=== PATIENT | female | born 1980 | race American Indian/Alaskan Native ===

== ENCOUNTER 2020-05-26 14:59 | Emergency (ER) | payer SELFPAY ==
--- NOTE | 2020-05-26 15:37 | Event Note ---
ED Screening Note Date of service: 05/26/20 Time: 15:35 ED Screening Note: 40-year-old -Filipino female presents to the emergency room for lower abdominal pain x2 weeks. Patient states that the pain is getting worse. Has mild vaginal discharge. Pain is getting worse with walking moving. This initial assessment/diagnostic orders/clinical plan/treatment(s) is/are subject to change based on patients health status, clinical progression and re- assessment by fellow clinical providers in the ED. Further treatment and workup at subsequent clinical providers discretion. Patient/guardian urged not to elope from the ED as their condition may be serious if not clinically assessed and man aged. Initial orders include:
[2020-05-26 16:17] LABS: Alanine Aminotransferase 11 units/L (7-56); Albumin 4.1 g/dL (3.9-5); Blood Urea Nitrogen 8 mg/dL (7-17); Calcium 9.1 mg/dL (8.4-10.2); Hemolysis Index 5
[2020-05-26 16:19] LABS: BUN/Creatinine Ratio 13
[2020-05-26 16:28] LABS: Basophils % (Auto) 0.2 % (0.0-1.8); Eosinophils % (Auto) 0.1 % (0.0-4.3); Hemoglobin 13.2 gm/dl (10.1-14.3); Lymphocytes # (Auto) 1.2 K/mm3 (1.2-5.4); Lymphocytes % (Auto) 10.3 % (13.4-35.0); Mean Corpuscular HGB Conc 35 % (30-34); Mean Corpuscular Volume 92 fl (79-97); Monocytes # (Auto) 0.6 K/mm3 (0.0-0.8); Monocytes % (Auto) 5.4 % (0.0-7.3); Platelet Count 228 K/mm3 (140-440); Red Blood Count 4.13 M/mm3 (3.65-5.03); Red Cell Distribution Width 13.7 % (13.2-15.2)
[2020-05-26] MEDS ORDERED: ONDANSETRON 4 MG/2 ML INJ IV ONE (19:14)
[2020-05-26] MEDS ORDERED: KETOROLAC 30 MG/1 ML INJ IV ONE (19:14)
--- NOTE | 2020-05-26 19:35 | Emergency Department Report ---
ED Female HPI - General Chief complaint: Abdominal Pain Stated complaint: LOWER ABD PAIN Source: patient Mode of arrival: Ambulatory Limitations: No Limitations - History of Present Illness Initial comments: Patient is a A2 40-year-old -[place] female with no past medical history presents to the ED with complaint of acute onset persistent severe pelvic and suprapubic pain that radiates diffusely in the lower abdomen with vaginal discharge, dyspareunia, urinary urgency and frequency for the last 1 week. Patient states that she initially was evaluated for the same at an urgent care clinic and was told that she had bacterial vaginosis but was never given any antibiotic prescription for bacterial vaginosis. Patient states that she was told to go and purchase yogurt in order to help treat the bacterial vaginosis. Patient states that in the last 4 days, the pain has been persistent, severe and that she is unable to sleep because of worsening pain. Patient denies fever, chills, nausea and vomiting, diarrhea, dysuria, low back pain, chest pain or shortness of breath, sore throat, cough or headache and dizziness. MD Complaint: vaginal discharge, pelvic pain -: Sudden, week(s) (1) Location: suprapubic Radiation: LLQ, RLQ Severity: severe Severity scale (0 -10): 8 Quality: sharp, aching Consistency: constant Improves with: none Worsens with: intercourse, movement Are you Now?: No Last Menstrual Period: 05/19/20 EDC: 02/23/21 Associated Symptoms: denies other symptoms, vaginal discharge, abdominal pain (Suprapubic pain), nausea/vomiting, loss of appetite. denies: vaginal bleeding, headaches, dysuria, hematuria, rash, seizure, shortness of breath, syncope, weakness - Related Data Sexually active: Yes : 2 Para: 0 A: 2 Previous Rx's Medication Instructions Recorded Last Taken Type DOXYCYCLINE Hyclate [Vibramycin 100 mg PO Q12HR #20 capsule 05/26/20 Unknown Rx CAP] Fluconazole (Nf) [Diflucan TAB] 150 mg PO ONCE #1 tablet 05/26/20 Unknown Rx Ibuprofen [Motrin] 800 mg PO Q8HR PRN #30 tablet 05/26/20 Unknown Rx Ondansetron [Zofran Odt] 4 mg PO Q6HR PRN #15 tab.rapdis 05/26/20 Unknown Rx metroNIDAZOLE [Flagyl] 500 mg PO Q12HR #14 tab 05/26/20 Unknown Rx traMADoL [Ultram] 50 mg PO Q6HR PRN #10 tablet 05/26/20 Unknown Rx Allergies Allergy/AdvReac Type Severity Reaction Status Date / Time tomato Allergy Rash Verified 05/26/20 15:01 ED Review of Systems ROS: Stated complaint: LOWER ABD PAIN Other details as noted in HPI Constitutional: denies: chills, fever Eyes: denies: eye pain, eye discharge, vision change ENT: denies: ear pain, throat pain Respiratory: denies: cough, shortness of breath, wheezing Cardiovascular: denies: chest pain, palpitations Endocrine: no symptoms reported Gastrointestinal: abdominal pain (Suprapubic pain). denies: nausea, vomiting, diarrhea Genitourinary: urgency, frequency, discharge, dyspareunia, other (Pelvic pain). denies: dysuria Musculoskeletal: denies: back pain, joint swelling, arthralgia Skin: denies: rash, lesions Neurological: denies: headache, weakness, paresthesias Psychiatric: denies: anxiety, depression Hematological/Lymphatic: denies: easy bleeding, easy bruising ED Past Medical Hx - Past Medical History Previous Medical History?: Yes Additional medical history: Bacterial vaginosis - Surgical History Past Surgical History?: No - Social History Smoking Status: Current Every Day Smoker Substance Use Type: Alcohol - Medications Home Medications: Home Medications Medication Instructions Recorded Confirmed Last Taken Type DOXYCYCLINE Hyclate [Vibramycin 100 mg PO Q12HR #20 capsule 05/26/20 Unknown Rx CAP] Fluconazole (Nf) [Diflucan TAB] 150 mg PO ONCE #1 tablet 05/26/20 Unknown Rx Ibuprofen [Motrin] 800 mg PO Q8HR PRN #30 tablet 05/26/20 Unknown Rx Ondansetron [Zofran Odt] 4 mg PO Q6HR PRN #15 tab.rapdis 05/26/20 Unknown Rx metroNIDAZOLE [Flagyl] 500 mg PO Q12HR #14 tab 05/26/20 Unknown Rx traMADoL [Ultram] 50 mg PO Q6HR PRN #10 tablet 05/26/20 Unknown Rx ED Physical Exam - General Limitations: No Limitations General appearance: alert, in no apparent distress - Head Head exam: Present: atraumatic, normocephalic, normal inspection - Eye Eye exam: Present: normal appearance, PERRL, EOMI Pupils: Present: normal accommodation - ENT ENT exam: Present: normal exam, normal orophraynx, mucous membranes moist, TM's normal bilaterally, normal external ear exam - Neck Neck exam: Present: normal inspection, full ROM - Respiratory Respiratory exam: Present: normal lung sounds bilaterally. Absent: respiratory distress, wheezes, rales, rhonchi, stridor, chest wall tenderness, accessory muscle use, decreased breath sounds - Cardiovascular Cardiovascular Exam: Present: normal rhythm, tachycardia, normal heart sounds. Absent: systolic murmur, diastolic murmur, rubs, gallop - GI/Abdominal GI/Abdominal exam: Present: soft, tenderness (Palpable suprapubic and diffuse lower abdominal tenderness), normal bowel sounds. Absent: distended, guarding, rebound, hyperactive bowel sounds, organomegaly - Bi-manual exam: Present: other (Female RN elementary school social worker Ms. Pittman present during the pelvic exam) - Extremities Exam Extremities exam: Present: normal inspection, full ROM, normal capillary refill - Back Exam Back exam: Present: normal inspection, full ROM. Absent: tenderness, CVA tenderness (R), CVA tenderness (L), muscle spasm, paraspinal tenderness, vertebral tenderness - Neurological Exam Neurological exam: Present: alert, oriented X3, CN II-XII intact, normal gait, reflexes normal - Psychiatric Psychiatric exam: Present: normal affect, normal mood - Skin Skin exam: Present: warm, dry, intact, normal color. Absent: rash ED Course Vital Signs 05/26/20 15:03 Temperature 98.9 F Pulse Rate 102 H Respiratory 20 Rate Blood Pressure 118/80 O2 Sat by Pulse 99 Oximetry ED Medical Decision Making - Lab Data Result diagrams: 05/26/20 15:47 05/26/20 15:47 - Radiology Data Radiology results: report reviewed, image reviewed Findings [facility] [address] [place] [address] Ultrasound Report Signed Patient: ADORE SARKAR MR#: [id number] : 1980 Acct:[id number] Age/Sex: 40 / F ADM Date: 05/26/20 Loc: ED Attending Dr: Ordering Physician: DEDRA HAWKINS Date of Service: 05/26/20 Procedure(s): US pelvic complete Accession Number(s): [id number] cc: DEDRA HAWKINS ULTRASOUND PELVIS INDICATION / CLINICAL INFORMATION: Pelvic pain. TECHNIQUE: Transabdominal. Duplex Color Doppler used: Yes. COMPARISON: None available FINDINGS: UTERUS: The uterus measures 5.6 cm in length. The uterus is retroflexed. There are uterine fibroids measuring up to 5 cm. The endometrial stripe measures 8 mm. RIGHT ADNEXA: The right ovary measures 1.6 cm Normal color Doppler blood flow. LEFT ADNEXA: The left ovary is not visualized URINARY BLADDER: No significant abnormality. FREE FLUID: None. ADDITIONAL FINDINGS: None. IMPRESSION: 1. There are uterine fibroids. Signer Name: Christo Rosa MD Signed: 05/26/2020 9:23 PM Workstation Name: [id number] Transcribed By: KELESY Dictated By: Christo Rosa MD Electronically Authenticated By: Christo Rosa MD Signed Date/Time: 05/26/202122 DD/ 20 TD/TT: - Medical Decision Making This is a A2 40-year-old -[place] female with no past medical his tory presents to the ED with complaint of acute onset persistent severe pelvic and suprapubic pain that radiates diffusely in the lower abdomen with vaginal discharge, dyspareunia, urinary urgency and frequency for the last 1 week. Patient states that she initially was evaluated for the same at an urgent care clinic and was told that she had bacterial vaginosis but was never given any antibiotic prescription for bacterial vaginosis. Patient states that she was told to go and purchase yogurt in order to help treat the bacterial vaginosis. Patient states that in the last 4 days, the pain has been persistent, severe and that she is unable to sleep because of worsening pain. In the ED, patient is alert and oriented x3 and is not in any distress. Patient however appears to be in pain and is hemodynamically stable. Patient was treated for pain in the ED and lab test results were reviewed and showed mild leukocytosis of 11,400. The rest of the lab test results are nonactionable except for wet prep which was positive for significant Gardnerella vaginalis consistent with bacterial vagi nosis. Pelvic ultrasound showed significant uterine fibroids some measuring up to 5 cm in size. Pelvic exam was positive for cervical motion tenderness consistent with PID. Patient was treated empirically in the ED for PID with Rocephin and azithromycin. On reevaluation, patient felt better and was discharged home on pain medications and antibiotics and was advised to follow-up with her EXECUTIVE CREATIVE DIRECTOR physician or primary care physician in 7 to 10 days for reevaluation or return to the ED immediately if symptoms get worse. - Differential Diagnosis PID; BV; UTI; Fibroids; Ovarian cyst; STD; Critical care attestation.: If time is entered above; I have spent that time in minutes in the direct care of this critically ill patient, excluding procedure time. ED Disposition Clinical Impression: Acute pelvic inflammatory disease (PID), Bacterial vaginosis Uterine fibroid Qualifiers: Uterine leiomyoma location: unspecified location Qualified Code(s): D25.9 - Leiomyoma of uterus, unspecified Disposition: TO HOME OR SELFCARE Is pt being admited?: No Does the pt Need Aspirin: No Condition: Stable Instructions: Bacterial Vaginosis (ED), Abdominal Pain (ED), Uterine Fibroids, [id number], Bacterial Vaginosis, [id number], Pelvic Inflammatory Disease, [id number] Additional Instructions: Take medications with food, drink plenty of fluids and follow-up with your [facility] care physician or EXECUTIVE CREATIVE DIRECTOR physician in 7 to 10 days for reevaluation. Return to the ED immediately if symptoms get worse. Prescriptions: Fluconazole (Nf) [Diflucan TAB] 150 mg PO ONCE #1 tablet metroNIDAZOLE [Flagyl] 500 mg PO Q12HR #14 tab Ibuprofen [Motrin] 800 mg PO Q8HR PRN #30 tablet PRN Reason: Pain , Severe (7-10) traMADoL [Ultram] 50 mg PO Q6HR PRN #10 tablet PRN Reason: Pain DOXYCYCLINE Hyclate [Vibramycin CAP] 100 mg PO Q12HR #20 capsule Ondansetron [Zofran Odt] 4 mg PO Q6HR PRN #15 tab.rapdis PRN Reason: Nausea Referrals: [facility] [Provider Group] - 7-10 days DANIELA GARSIA MD [Staff Physician] - 7-10 days Forms: STI Treatment and Prevention, Work/School Release Form(ED) Time of Disposition: 23:27 Print Language: IRISH
--- NOTE | 2020-05-26 21:27 | Ultrasound Report ---
ULTRASOUND PELVIS INDICATION / CLINICAL INFORMATION: Pelvic pain. TECHNIQUE: Transabdominal. Duplex Color Doppler used: Yes. COMPARISON: None available FINDINGS: UTERUS: The uterus measures 5.6 cm in length. The uterus is retroflexed. There are uterine fibroids m easuring up to 5 cm. The endometrial stripe measures 8 mm. RIGHT ADNEXA: The right ovary measures 1.6 cm Normal color Doppler blood flow. LEFT ADNEXA: The left ovary is not visualized URINARY BLADDER: No significant abnormality. FREE FLUID: None. ADDITIONAL FINDINGS: None. IMPRESSION: 1. There are uterine fibroids. Signer Name: Christo Rosa MD Signed: 05/26/2020 9:23 PM Workstation Name: [id number]
[2020-05-26] MEDS ORDERED: cefTRIAXone/NS 1 GM/50 ML 1 GM/50 ML BAG IV ONE (21:55)
[2020-05-26] MEDS ORDERED: AZITHROMYCIN 250 MG TAB PO ONE (21:55)
[2020-05-26 22:33] LABS: HCG Qualitative,Urine Negative (Negative)
[2020-05-26 22:38] LABS: Bilirubin,Urine NEG (Negative); Blood,Urine NEG (Negative); Color,Urine Yellow (Yellow); Mucus,Urine 3+ /HPF; Protein,Urine <15 mg/dL mg/dL (Negative); Renal Epithelial Cells,Urine 1 /LPF; Urobilinogen,Urine < 2.0 mg/dL (<2.0)
[2020-05-27 00:50] VITALS: BP 116/73
== END 2020-05-27 00:01 | disposition home or self-care (01) ==
LOC: ED 14:59
DX: D25.9 Leiomyoma of uterus, unspecified (principal); N73.0 Acute parametritis and pelvic cellulitis; N76.0 Acute vaginitis; B96.89 Other specified bacterial agents as the cause of diseases classified elsewhere; F17.200 Nicotine dependence, unspecified, uncomplicated; Z79.899 Other long term (current) drug therapy; Z91.018 Allergy to other foods
CPT/HCPCS: 36415; 76856; 80053; 81001; 81025; 85025; 87210; 87591; 96365; 96375; 99284; J0696; J1885; J2405

== ENCOUNTER 2020-07-09 03:32 | Emergency (ER) | payer SELFPAY ==
[2020-07-09 04:17] LABS: Basophils % (Auto) 0.1 % (0.0-1.8); Eosinophils % (Auto) 0.2 % (0.0-4.3); Hematocrit 35.4 % (30.3-42.9); Hemoglobin 12.3 gm/dl (10.1-14.3); Lymphocytes # (Auto) 0.6 K/mm3 (1.2-5.4); Lymphocytes % (Auto) 6.3 % (13.4-35.0); Mean Corpuscular HGB Conc 35 % (30-34); Mean Corpuscular Volume 91 fl (79-97); Monocytes # (Auto) 0.7 K/mm3 (0.0-0.8); Monocytes % (Auto) 7.5 % (0.0-7.3); Platelet Count 218 K/mm3 (140-440); Red Cell Distribution Width 14.3 % (13.2-15.2)
[2020-07-09 04:17] LABS: Bilirubin,Urine NEG (Negative); Blood,Urine NEG (Negative); Color,Urine Yellow (Yellow); Mucus,Urine FEW /HPF; Protein,Urine <15 mg/dL mg/dL (Negative); RBC,Urine < 1.0 /HPF (0.0-6.0); Urobilinogen,Urine < 2.0 mg/dL (<2.0)
[2020-07-09 04:37] LABS: Alanine Aminotransferase 12 units/L (7-56); Blood Urea Nitrogen 8 mg/dL (7-17); Calcium 9.1 mg/dL (8.4-10.2); Hemolysis Index 4
[2020-07-09 04:43] LABS: BUN/Creatinine Ratio 13
[2020-07-09 10:36] VITALS: BP 119/76
[2020-07-09] MEDS ORDERED: KETOROLAC 30 MG/1 ML INJ IM ONE (11:28)
[2020-07-09] MEDS ORDERED: oxyCODONE /ACETAMINOPHEN 5-325MG TAB PO ONE (11:28)
--- NOTE | 2020-07-09 11:38 | Emergency Department Report ---
ED General Adult HPI - General Chief complaint: Abdominal Pain Stated complaint: SICK Time Seen by Provider: 07/09/20 10:45 Source: patient Mode of arrival: Ambulatory Limitations: No Limitations - History of Present Illness Initial comments: 40-year-old -[place] female patient presents with complaints of right lower pelvic pain x 2 days. Patient reports the pain is similar to the pain she was seen for here in the ED about 3 to 4 weeks ago. At that time, patient was diagnosed with fibroids and PID. She states she did complete her antibiotics that were prescribed at that time and recently had negative STD testing performed. She rates her current pain as a 9/10 in severity and denies any dysuria/hematuria/urinary frequency, dyspareunia, fever/chills/sweats, stool changes, or abnormal vaginal bleeding. Patient states she has a follow-up appointment scheduled with an STEAM PLANT OPERATOR at [place]. - Related Data Previous Rx's Medication Instructions Recorded Last Taken Type DOXYCYCLINE Hyclate [Vibramycin 100 mg PO Q12HR #20 capsule 05/26/20 Unknown Rx CAP] Ondansetron [Zofran Odt] 4 mg PO Q6HR PRN #15 tab.rapdis 05/26/20 Unknown Rx traMADoL [Ultram] 50 mg PO Q6HR PRN #10 tablet 05/26/20 Unknown Rx Fluconazole (Nf) [Diflucan TAB] 150 mg PO ONCE #1 tablet 07/09/20 Unknown Rx Ibuprofen [Motrin 800 MG tab] 800 mg PO Q8HR PRN #21 tablet 07/09/20 Unknown Rx metroNIDAZOLE [Flagyl TAB] 500 mg PO Q12HR #14 tab 07/09/20 Unknown Rx Allergies Allergy/AdvReac Type Severity Reaction Status Date / Time tomato Allergy Rash Verified 05/26/20 15:01 ED Review of Systems ROS: Stated complaint: SICK Other details as noted in HPI Constitutional: denies: chills, fever, malaise Respiratory: denies: shortness of breath Cardiovascular: denies: chest pain Gastrointestinal: abdominal pain. denies: nausea, vomiting, diarrhea, constipation, hematemesis, melena, hematochezia Genitourinary: discharge (States fishy odor). denies: urgency, dysuria, frequency, hematuria, abnormal menses, dyspareunia Musculoskeletal: denies: back pain Skin: denies: rash, lesions, change in color Hematological/Lymphatic: denies: swollen glands ED Past Medical Hx - Past Medical History Previous Medical History?: Yes Additional medical history: Bacterial vaginosis. ovarian cyst - Surgical History Past Surgical History?: No - Social History Smoking Status: Current Some Day Smoker Substance Use Type: Alcohol - Medications Home Medications: Home Medications Medication Instructions Recorded Confirmed Last Taken Type DOXYCYCLINE Hyclate [Vibramycin 100 mg PO Q12HR #20 capsule 05/26/20 Unknown Rx CAP] Ondansetron [Zofran Odt] 4 mg PO Q6HR PRN #15 tab.rapdis 05/26/20 Unknown Rx traMADoL [Ultram] 50 mg PO Q6HR PRN #10 tablet 05/26/20 Unknown Rx Fluconazole (Nf) [Diflucan TAB] 150 mg PO ONCE #1 tablet 07/09/20 Unknown Rx Ibuprofen [Motrin 800 MG tab] 800 mg PO Q8HR PRN #21 tablet 07/09/20 Unknown Rx metroNIDAZOLE [Flagyl TAB] 500 mg PO Q12HR #14 tab 07/09/20 Unknown Rx ED Physical Exam - General Limitations: No Limitations General appearance: alert, in no apparent distress - Head Head exam: Present: atraumatic, normocephalic - Eye Eye exam: Present: normal appearance. Absent: scleral icterus - Neck Neck exam: Present: normal inspection - Respiratory Respiratory exam: Present: normal lung sounds bilaterally. Absent: respiratory distress - Cardiovascular Cardiovascular Exam: Present: regular rate, normal rhythm. Absent: systolic murmur, diastolic murmur, rubs, gallop - GI/Abdominal GI/Abdominal exam: Present: soft, tenderness (Right suprapubic), normal bowel sounds. Absent: distended, guarding, rebound, rigid - Expanded GI/Abdominal Exam Expanded GI/Abdominal exam: Absent: psoas sign, obturator sign, heel tap sign, Whitt's sign, Rovsing's sign, tenderness at Mcburney's Point - Extremities Exam Extremities exam: Present: full ROM - Back Exam Back exam: Present: normal inspection - Neurological Exam Neurological exam: Present: alert, oriented X3 - Psychiatric Psychiatric exam: Present: normal affect, normal mood - Skin Skin exam: Present: warm, dry, intact, normal color. Absent: rash, cyanosis, diaphoretic, erythema, ecchymosis ED Course Vital Signs 07/09/20 07/09/20 07/09/20 03:37 10:34 10:36 Temperature 98.4 F 98.5 F Pulse Rate 92 H 87 Respiratory 18 16 Rate Blood Pressure 125/80 119/76 O2 Sat by Pulse 96 97 Oximetry ED Medical Decision Making - Lab Data Result diagrams: 07/09/20 03:47 07/09/20 03:47 - Medical Decision Making 40-year-old -[place] female patient presents with complaints of right lower pelvic pain x 2 days. Patient reports the pain is similar to the pain she was seen for here in the ED about 3 to 4 weeks ago. At that time, patient was diagnosed with fibroids and PID. She states she did complete her antibiotics that were prescribed at that time and recently had negative STD testing performed. She rates her current pain as a 9/10 in severity and denies any dysuria/hematuria/urinary frequency, dyspareunia, fever/chills/sweats, stool changes, or abnormal vaginal bleeding. Patient states she has a follow-up appointment scheduled with an STEAM PLANT OPERATOR at [place]. No McBurney point tenderness noted on exam. GC/chlamydia and trichomonas negative at last visit. Patient states she had recent negative STD testing since her last visit. She also reports history of recurrent BV and states the fishy odor is consistent with this. CBC, CMP, and UA are without acute findings. She is afebrile and nontachycardic. Ultrasound at last visit showed a 5 cm fibroid-patient's pain likely is due to this given recurrence of pain at the same time of each month per patient. Will treat with ibuprofen. Flagyl prescription given. Patient to follow-up with STEAM PLANT OPERATOR as scheduled. Discussed signs and symptoms that should prompt immediate return to the emergency department in detail with patient who verbalized understanding. Critical care attestation.: If time is entered above; I have spent that time in minutes in the direct care of this critically ill patient, excluding procedure time. ED Disposition Clinical Impression: Fibroid of cervix, Bacterial vaginosis Disposition: - TO HOME OR SELFCARE Is pt being admited?: No Condition: Stable Instructions: Abdominal Pain (ED), Bacterial Vaginosis (ED), Uterine Fibroids, [id number], Bacterial Vaginosis Prescriptions: Fluconazole (Nf) [Diflucan TAB] 150 mg PO ONCE #1 tablet metroNIDAZOLE [Flagyl TAB] 500 mg PO Q12HR #14 tab Ibuprofen [Motrin 800 MG tab] 800 mg PO Q8HR PRN #21 tablet PRN Reason: pain Referrals: PRIMARY CARE,MD [Primary Care Provider] - 3-5 Days Forms: STI Treatment and Prevention
== END 2020-07-09 12:04 | disposition home or self-care (01) ==
LOC: ED 03:32
DX: N76.0 Acute vaginitis (principal); D25.9 Leiomyoma of uterus, unspecified; F17.200 Nicotine dependence, unspecified, uncomplicated; Z79.899 Other long term (current) drug therapy; Z91.018 Allergy to other foods
CPT/HCPCS: 36415; 80053; 81001; 83690; 84703; 85025; 96372; 99283; J1885